=== PATIENT | female | born 1985 | race Caucasian/White ===

== ENCOUNTER 2019-04-07 16:53 | Emergency (ER) | payer OTHER ==
[2019-04-07 17:52] VITALS: BP 123/83
[2019-04-07] MEDS ORDERED: MORPHINE SULFATE 4 MG/ML SYRINGE IV STA (18:03)
[2019-04-07] MEDS ORDERED: SODIUM CHLORIDE 0.9% 1,000 ML IV STA (18:03)
--- NOTE | 2019-04-07 18:17 | XR ---
EXAMINATION TYPE: XR KUB DATE OF EXAM: 04/07/2019 COMPARISON: NONE HISTORY: Abdominal pain TECHNIQUE: Single view upright FINDINGS: There is left side double-J ureteral stent. There is triangular-shaped 5 mm calcification o pratima the lower pole left kidney. There is no sign of intestinal obstruction or pneumoperitoneum. Fecal pattern is normal. Lung bases are clear. IMPRESSION: Left ureteral stent. Left renal calculus.
--- NOTE | 2019-04-07 18:47 | ED ---
General Adult HPI - General Source: patient, RN notes reviewed, old records reviewed Mode of arrival: ambulatory Limitations: no limitations <Esequiel Tucker - Last Filed: 04/07/19 19:58> <Rashad Andrews - Last Filed: 04/07/19 20:56> - General Chief complaint: Urogenital Stated complaint: kidney stone problem Time Seen by Provider: 04/07/19 17:56 - History of Present Illness Initial comments: 33-year-old female patient with past with history of recent kidney stone and ureteral stent placed presents to ED for pain. Patient reports that yesterday she went to [facility] for back pain. Patient reports that she was diagnosed with a kidney stone, and had a ureteral stent placed. Patient was Hospital overnight. Patient states that she was discharged today. Patient has been taking Cefotan antibiotic as well as Flomax. Patient reports that she is having pain in her left flank region. Patient states that the symptoms which she was experiencing yesterday. Patient reports that she is primarily coming today for pain control and continued evaluation. Patient denies any other symptoms, denies any fevers chills nausea vomiting diarrhea, dysuria. Patient denies any chest pain or shortness breath. Patient states that she had a tubal ligation so she cannot be . Systemic: Pt denies fatigue, myalgia, fever/chills, rash. Pt denies weakness, night sweats, weight loss. Neuro: Pt denies headache, visual disturbances, syncope or pre-syncope. HEENT: Pt denies ocular discharge or irritation, otalgia, rhinorrhea, pharyngitis or notable lymphadenopathy. Cardiopulmonary: Pt denies chest pain, SOB, heart palpitations, dyspnea on exertion. Abdominal/GI: Pt denies abdominal pain, n/v/d. : Pt denies dysuria, burning w/ urination, frequency/urgency. Denies new onset urinary or bowel incontinence. MSK: Pt denies myalgia, loss of strength or function in extremities. Neuro: Pt denies new onset weakness, paresthesias. (Esequiel Tucker) - Related Data Allergies Allergy/AdvReac Type Severity Reaction Status Date / Time No Known Allergies Allergy Verified 04/07/19 17:52 Review of Systems ROS Other: All systems not noted in ROS Statement are negative. <Esequiel Tucker - Last Filed: 04/07/19 19:58> ROS Other: All systems not noted in ROS Statement are negative. <AndrewsRashad - Last Filed: 04/07/19 20:56> ROS Statement: Those systems with pertinent positive or pertinent negative responses have been documented in the HPI. Past Medical History Additional Past Medical History / Comment(s): KIDNEY STONE History of Any Multi-Drug Resistant Organisms: None Reported Past Surgical History: Section Additional Past Surgical History / Comment(s): KIDNEY STENT Past Psychological History: No Psychological Hx Reported Smoking Status: Never smoker Past Alcohol Use History: None Reported Past Drug Use History: None Reported <Esequiel Tucker - Last Filed: 04/07/19 19:58> General Exam Limitations: no limitations <Esequiel Tucker - Last Filed: 04/07/19 19:58> - General Exam Comments Initial Comments: Constitutional: NAD, AOX3, Pt has pleasant affect. HEENT: NC/AT, trachea midline, neck supple, no lymphadenopathy. Posterior pharynx non erythematous, without exudates. External ears appear normal, without discharge. Mucous membranes moist. Eyes PERRLA, EOM intact. There is no scleral icterus. No pallor noted. Cardiopulmonary: RRR, no murmurs, rubs or gallops, no JVD noted. Lungs CTAB in anterior and posterior garcía. No peripheral edema. Abdominal exam: Abdomen soft and non-distended. Abdomen non-tender to palpation in all 4 quadrants. Bowel sounds active in LLQ. No hepatosplenomegaly. No ecchymosis. Mild left CVA tenderness. No R CVA tenderness. Neuro: CN II-XII grossly intact. No nuchal rigidity. MSK: No posterior calf tenderness bilaterally, homans sign negative bilaterally. Posterior tibialis and radial pulse +2 bilaterally. Sensation intact in upper and lower extremities. Full active ROM in upper and lower extremities, 5/5 stregnth. (Esequiel Tucker) Course Vital Signs 04/07/19 04/07/19 04/07/19 17:48 19:17 20:23 Temperature 99.2 F 100.1 F H Pulse Rate 107 H 77 Respiratory 18 16 Rate Blood Pressure 123/83 O2 Sat by Pulse 99 99 Oximetry Medical Decision Making - Lab Data Result diagrams: 04/07/19 18:30 04/07/19 18:30 <Esequiel Tucker - Last Filed: 04/07/19 19:58> - Lab Data Result diagrams: 04/07/19 18:30 04/07/19 18:30 <Rashad Andrews - Last Filed: 04/07/19 20:56> - Medical Decision Making 33-year-old female patient with past with history of recent kidney stone and u reteral stent placed presents to ED for pain. Patient reports that yesterday she went to [facility] for back pain. Patient reports that she was diagnosed with a kidney stone, and had a ureteral stent placed. Patient was Hospital overnight. Patient states that she was discharged today. Patient has been taking Cefotan antibiotic as well as Flomax. Patient reports that she is having pain in her left flank region. Patient states that the symptoms which she was experiencing yesterday. Patient reports that she is primarily coming today for pain control and continued evaluation. Patient denies any other symptoms, denies any fevers chills nausea vomiting diarrhea, dysuria. Patient denies any chest pain or shortness breath. Patient states that she had a tubal ligation so she cannot be . Pt VSS, afebrile. Physical exam displayed: Abdomen soft and non-distended. Abdomen non-tender to palpation in all 4 quadrants. Bowel sounds active in LLQ. No hepatosplenomegaly. No ecchymosis. Mild left CVA tenderness. No R CVA tenderness. Ultrasound renal some bladder displayed there is a calculus in the lower pole left kidney. No hydronephrosis. Ureteral stent placed in left side. No complicating process. Bilateral jets seen. KUB displayed left ureteral stent. Left renal colic. Laboratory investigations revealed very mild leukocytosis of 11.7, likely reactive. CMP wi thin normal limits. UA displayed moderate blood. Grade 182 red blood cells. 2 white blood cells. Patient will be discharged, will follow-up with urologist in which she was established from [facility]. Patient additionally provided information for urologist from [facility] if unable to follow up with previously referred urologist. Pt will continue to take cefitin and flomax as d irected Return precautions discussed. Patient return to ER if conditions worsen. Case discussed with Dr. Andrews. Pt not driving home. (Esequiel Tucker) Patient reevaluated by myself, Dr. Andrews. Patient resting comfortably in bed with mild discomfort left lower abdomen. Patient states she was discharged yesterday from [facility] under the care of Dr. Segal. Patient states she did have a stent placed at that time. Patient is on Ceftin. Case was discussed in detail with Dr. León who is okay with discharge of patient and recommends follow-up with Dr. Segal. (Rashad Andrews) - Lab Data Lab Results 04/07/19 04/07/19 04/07/19 Range/Units 18:30 18:30 18:30 WBC 11.7 H (3.8-10.6) k/uL RBC 4.45 (3.80-5.40) m/uL Hgb 12.4 (11.4-16.0) gm/dL Hct 37.3 (34.0-46.0) % MCV 83.7 (80.0-100.0) fL MCH 27.9 (25.0-35.0) pg MCHC 33.3 (31.0-37.0) g/dL RDW 13.4 (11.5-15.5) % Plt Count 289 (150-450) k/uL Neutrophils % 78 % Lymphocytes % 15 % Monocytes % 4 % Eosinophils % 1 % Basophils % 1 % Neutrophils # 9.2 H (1.3-7.7) k/uL Lymphocytes # 1.8 (1.0-4.8) k/uL Monocytes # 0.4 (0-1.0) k/uL Eosinophils # 0.1 (0-0.7) k/uL Basophils # 0.1 (0-0.2) k/uL Sodium 140 (137-145) mmol/L Potassium 4.2 (3.5-5.1) mmol/L Chloride 105 (98-107) mmol/L Carbon Dioxide 28 (22-30) mmol/L Anion Gap 7 mmol/L BUN 9 (7-17) mg/dL Creatinine 0.61 (0.52-1.04) mg/dL Est GFR (CKD-EPI)AfAm >90 (>60 ml/min/1.73 sqM) Est GFR (CKD-EPI)NonAf >90 (>60 ml/min/1.73 sqM) Glucose 96 (74-99) mg/dL Plasma Lactic Acid Pete (0.7-2.0) mmol/L Calcium 9.2 (8.4-10.2) mg/dL Total Bilirubin 0.2 (0.2-1.3) mg/dL AST 16 (14-36) U/L ALT 20 (9-52) U/L Alkaline Phosphatase 72 (38-126) U/L Total Protein 6.5 (6.3-8.2) g/dL Albumin 3.9 (3.5-5.0) g/dL Urine Color Light Yellow Urine Appearance Clear (Clear) Urine pH 6.5 (5.0-8.0) Ur Specific [place] 1.009 (1.001-1.035) Urine Protein 1+ H (Negative) Urine Glucose (UA) Negative (Negative) Urine Ketones Negative (Negative) Urine Blood Moderate H (Negative) Urine Nitrite Negative (Negative) Urine Bilirubin Negative (Negative) Urine Urobilinogen <2.0 (<2.0) mg/dL Ur Leukocyte Esterase Large H (Negative) Urine RBC >182 H (0-5) /hpf Urine WBC 2 (0-5) /hpf Ur Squamous Epith Cells 5 H (0-4) /hpf Urine Mucus Few H (None) /hpf 04/07/19 Range/Units 18:30 WBC (3.8-10.6) k/uL RBC (3.80-5.40) m/uL Hgb (11.4-16.0) gm/dL Hct (34.0-46.0) % MCV (80.0-100.0) fL MCH (25.0-35.0) pg MCHC (31.0-37.0) g/dL RDW (11.5-15.5) % Plt Count (150-450) k/uL Neutrophils % % Lymphocytes % % Monocytes % % Eosinophils % % Basophils % % Neutrophils # (1.3-7.7) k/uL Lymphocytes # (1.0-4.8) k/uL Monocytes # (0-1.0) k/uL Eosinophils # (0-0.7) k/uL Basophils # (0-0.2) k/uL Sodium (137-145) mmol/L Potassium (3.5-5.1) mmol/L Chloride (98-107) mmol/L Carbon Dioxide (22-30) mmol/L Anion Gap mmol/L BUN (7-17) mg/dL Creatinine (0.52-1.04) mg/dL Est GFR (CKD-EPI)AfAm (>60 ml/min/1.73 sqM) Est GFR (CKD-EPI)NonAf (>60 ml/min/1.73 sqM) Glucose (74-99) mg/dL Plasma Lactic Acid Pete 1.3 (0.7-2.0) mmol/L Calcium (8.4-10.2) mg/dL Total Bilirubin (0.2-1.3) mg/dL AST (14-36) U/L ALT (9-52) U/L Alkaline Phosphatase (38-126) U/L Total Protein (6.3-8.2) g/dL Albumin (3.5-5.0) g/dL Urine Color Urine Appearance (Clear) Urine pH (5.0-8.0) Ur Specific [place] (1.001-1.035) Urine Protein (Negative) Urine Glucose (UA) (Negative) Urine Ketones (Negative) Urine Blood (Negative) Urine Nitrite (Negative) Urine Bilirubin (Negative) Urine Urobilinogen (<2.0) mg/dL Ur Leukocyte Esterase (Negative) Urine RBC (0-5) /hpf Urine WBC (0-5) /hpf Ur Squamous Epith Cells (0-4) /hpf Urine Mucus (None) /hpf Disposition Is patient prescribed a controlled substance at d/c from ED?: No <Esequiel Tucker - Last Filed: 04/07/19 19:58> <Rashad Andrews - Last Filed: 04/07/19 20:56> Clinical Impression: Renal calculi Disposition: HOME SELF-CARE Condition: Stable Instructions (If sedation given, give patient instructions): Kidney Stones (ED) Additional Instructions: Patient to adhere to previously discussed treatment plan and will take medication(s) as directed. Patient to follow up with PCP in 1-2 days. Patient to return to ED if symptoms do not improve. Continue to take medications as directed. Follow-up with urologist placed stent. Additional information for urologist whom burn will be provided if unable to follow up with previously established urologist. Return to ER if c ondition worsens. Referrals: Luis Manuel Mei MD [Primary Care Provider] - 1-2 days Josh Kenney MD [STAFF PHYSICIAN] - 1-2 days
[2019-04-07 18:50] LABS: Basophils # (A) 0.1 k/uL (0-0.2); Basophils % (A) 1 %; Eosinophils # (A) 0.1 k/uL (0-0.7); Eosinophils % (A) 1 %; HCT 37.3 % (34.0-46.0); HGB 12.4 gm/dL (11.4-16.0); Lymphocytes # (A) 1.8 k/uL (1.0-4.8); Lymphocytes % (A) 15 %; MCH 27.9 pg (25.0-35.0); MCHC 33.3 g/dL (31.0-37.0); MCV 83.7 fL (80.0-100.0); Monocytes # (A) 0.4 k/uL (0-1.0); Monocytes % (A) 4 %; Neutrophils # (A) 9.2 k/uL (1.3-7.7); Neutrophils % (A) 78 %; Platelet Count 289 k/uL (150-450); RBC 4.45 m/uL (3.80-5.40); RDW 13.4 % (11.5-15.5); WBC 11.7 k/uL (3.8-10.6)
[2019-04-07 18:57] LABS: Appearance,Urine Clear (Clear); Bilirubin,Urine Negative (Negative); Blood,Urine Moderate (Negative); Color,Urine Light Yellow; Glucose,Urine (UA) Negative (Negative); Ketones,Urine Negative (Negative); Leukocyte Esterase,Urine Large (Negative); Mucus,Urine Few /hpf; Nitrite,Urine Negative (Negative); PH, Urine 6.5 (5.0-8.0); Protein,Urine 1+ (Negative); RBC,Urine >182 /hpf (0-5); Specific Gravity,Urine 1.009 (1.001-1.035); Squamous Epithelial Cell,Urine 5 /hpf (0-4); Urobilinogen,Urine <2.0 mg/dL (<2.0)
[2019-04-07 19:02] LABS: Anion Gap 7 mmol/L; Blood Urea Nitrogen 9 mg/dL (7-17); Calcium 9.2 mg/dL (8.4-10.2); Carbon Dioxide 28 mmol/L (22-30); Chloride 105 mmol/L (98-107); Glucose 96 mg/dL (74-99); Potassium 4.2 mmol/L (3.5-5.1); Sodium 140 mmol/L (137-145)
[2019-04-07 19:03] LABS: ALT 20 U/L (9-52); AST 16 U/L (14-36); Albumin 3.9 g/dL (3.5-5.0); Alkaline Phosphatase 72 U/L (38-126); Total Bilirubin 0.2 mg/dL (0.2-1.3); Total Protein 6.5 g/dL (6.3-8.2)
--- NOTE | 2019-04-07 19:10 | US ---
EXAMINATION TYPE: US renals and bladder DATE OF EXAM: 04/07/2019 COMPARISON: NONE CLINICAL HISTORY: Pain. lt flank pain, patient has stent in left kidney. EXAM MEASUREMENTS: Right Kidney: 9.5 x 4.5 x 5.4 cm Left Kidney: 11.1 x 6.1 x 5.2 cm Right Kidney: No hydronephrosis or masses seen Left Kidney: small calcification seen lower pole measures 0.9 cm, could represent stone. Bladder: wnl Bilateral Jets seen: stent seen in bladder. There is no evidence for hydronephrosis at this point in time. No nephrolithiasis is seen. No jay s are identified. The urinary bladder is anechoic. Bilateral ureteral jets are seen. IMPRESSION: There is calculus in the lower pole left kidney. No hydronephrosis. Ureteral stent is present on the left side without evidence of complicating process.
[2019-04-07 19:19] VITALS: PULSE 77; RESP 16
[2019-04-07 20:24] VITALS: TEMP 100.1
--- NOTE | 2019-04-07 20:57 | ED ---
Medical Decision Making - Medical Decision Making Second set of vitals displayed a temperature of 100.1F. No true fever. Laboratory investigations displayed mild leukocytosis of 11. Lactic acid within normal limits. UA did not display urinary tract infection. Patient is already on antibiotics, cefitan. Urologist - Dr. Valiente was paged by attending physician Dr. Andrews. Dr. Valiente recommended dc. Pt will be DC, will call pre viously established urologist in morning, Dr. Segal. Return precautions discussed, pt verbalized understanding. - Lab Data Result diagrams: 04/07/19 18:30 04/07/19 18:30 Lab Results 04/07/19 04/07/19 04/07/19 Range/Units 18:30 18:30 18:30 WBC 11.7 H (3.8-10.6) k/uL RBC 4.45 (3.80-5.40) m/uL Hgb 12.4 (11.4-16.0) gm/dL Hct 37.3 (34.0-46.0) % MCV 83.7 (80.0-100.0) fL MCH 27.9 (25.0-35.0) pg MCHC 33.3 (31.0-37.0) g/dL RDW 13.4 (11.5-15.5) % Plt Count 289 (150-450) k/uL Neutrophils % 78 % Lymphocytes % 15 % Monocytes % 4 % Eosinophils % 1 % Basophils % 1 % Neutrophils # 9.2 H (1.3-7.7) k/uL Lymphocytes # 1.8 (1.0-4.8) k/uL Monocytes # 0.4 (0-1.0) k/uL Eosinophils # 0.1 (0-0.7) k/uL Basophils # 0.1 (0-0.2) k/uL Sodium 140 (137-145) mmol/L Potassium 4.2 (3.5-5.1) mmol/L Chloride 105 (98-107) mmol/L Carbon Dioxide 28 (22-30) mmol/L Anion Gap 7 mmol/L BUN 9 (7-17) mg/dL Creatinine 0.61 (0.52-1.04) mg/dL Est GFR (CKD-EPI)AfAm >90 (>60 ml/min/1.73 sqM) Est GFR (CKD-EPI)NonAf >90 (>60 ml/min/1.73 sqM) Glucose 96 (74-99) mg/dL Plasma Lactic Acid Pete (0.7-2.0) mmol/L Calcium 9.2 (8.4-10.2) mg/dL Total Bilirubin 0.2 (0.2-1.3) mg/dL AST 16 (14-36) U/L ALT 20 (9-52) U/L Alkaline Phosphatase 72 (38-126) U/L Total Protein 6.5 (6.3-8.2) g/dL Albumin 3.9 (3.5-5.0) g/dL Urine Color Light Yellow Urine Appearance Clear (Clear) Urine pH 6.5 (5.0-8.0) Ur Specific [place] 1.009 (1.001-1.035) Urine Protein 1+ H (Negative) Urine Glucose (UA) Negative (Negative) Urine Ketones Negative (Negative) Urine Blood Moderate H (Negative) Urine Nitrite Negative (Negative) Urine Bilirubin Negative (Negative) Urine Urobilinogen <2.0 (<2.0) mg/dL Ur Leukocyte Esterase Large H (Negative) Urine RBC >182 H (0-5) /hpf Urine WBC 2 (0-5) /hpf Ur Squamous Epith Cells 5 H (0-4) /hpf Urine Mucus Few H (None) /hpf 04/07/19 Range/Units 18:30 WBC (3.8-10.6) k/uL RBC (3.80-5.40) m/uL Hgb (11.4-16.0) gm/dL Hct (34.0-46.0) % MCV (80.0-100.0) fL MCH (25.0-35.0) pg MCHC (31.0-37.0) g/dL RDW (11.5-15.5) % Plt Count (150-450) k/uL Neutrophils % % Lymphocytes % % Monocytes % % Eosinophils % % Basophils % % Neutrophils # (1.3-7.7) k/uL Lymphocytes # (1.0-4.8) k/uL Monocytes # (0-1.0) k/uL Eosinophils # (0-0.7) k/uL Basophils # (0-0.2) k/uL Sodium (137-145) mmol/L Potassium (3.5-5.1) mmol/L Chloride (98-107) mmol/L Carbon Dioxide (22-30) mmol/L Anion Gap mmol/L BUN (7-17) mg/dL Creatinine (0.52-1.04) mg/dL Est GFR (CKD-EPI)AfAm (>60 ml/min/1.73 sqM) Est GFR (CKD-EPI)NonAf (>60 ml/min/1.73 sqM) Glucose (74-99) mg/dL Plasma Lactic Acid Pete 1.3 (0.7-2.0) mmol/L Calcium (8.4-10.2) mg/dL Total Bilirubin (0.2-1.3) mg/dL AST (14-36) U/L ALT (9-52) U/L Alkaline Phosphatase (38-126) U/L Total Protein (6.3-8.2) g/dL Albumin (3.5-5.0) g/dL Urine Color Urine Appearance (Clear) Urine pH (5.0-8.0) Ur Specific [place] (1.001-1.035) Urine Protein (Negative) Urine Glucose (UA) (Negative) Urine Ketones (Negative) Urine Blood (Negative) Urine Nitrite (Negative) Urine Bilirubin (Negative) Urine Urobilinogen (<2.0) mg/dL Ur Leukocyte Esterase (Negative) Urine RBC (0-5) /hpf Urine WBC (0-5) /hpf Ur Squamous Epith Cells (0-4) /hpf Urine Mucus (None) /hpf Disposition Clinical Impression: Renal calculi Disposition: HOME SELF-CARE Condition: Stable Instructions (If sedation given, give patient instructions): Kidney Stones (ED) Additional Instructions: Patient to adhere to previously discussed treatment plan and will take medication(s) as directed. Patient to follow up with PCP in 1-2 days. Patient to return to ED if symptoms do not improve. Continue to take medications as directed. Follow-up with urologist placed stent. Additional information for urologist whom burn will be provided if unable to follow up with previously established urologist. Return to ER if condition worsens. Is patient prescribed a controlled substance at d/c from ED?: No Referrals: Luis Manuel Mei MD [Primary Care Provider] - 1-2 days Josh Kenney MD [STAFF PHYSICIAN] - 1-2 days
== END 2019-04-07 21:05 | disposition home or self-care (01) ==
LOC: EC 16:53
DX: N20.0 Calculus of kidney (principal); D72.829 Elevated white blood cell count, unspecified; Z96.89 Presence of other specified functional implants
CPT/HCPCS: 36415; 80053; 83605; 85025; 81001; 74018; 76770; 99285; 96374; 96361; J2270